=== PATIENT | male | born 1985 | race Caucasian/White ===

== ENCOUNTER 2017-07-09 02:16 | Emergency (ER) | payer SELFPAY ==
[~2017-07-09] VITALS: Ht 185.4 cm; Wt 81.6 kg
[2017-07-09 02:28] VITALS: BP 140/94
--- NOTE | 2017-07-09 02:51 | NUR ---
pt left without aci.
== END 2017-07-09 02:52 | disposition home or self-care (01) ==
LOC: ER 02:16
DX: G58.8 Other specified mononeuropathies (principal); M54.42 Lumbago with sciatica, left side
CPT/HCPCS: A4606; Z7610